=== PATIENT | female | born 1960 | race Caucasian/White ===

== ENCOUNTER 2019-10-07 18:00 | Emergency (ER) | payer OTHER ==
[~2019-10-07] VITALS: Ht 162.5 cm; Wt 43.1 kg
[2019-10-07 18:06] VITALS: BP 79/39
[2019-10-07 19:01] LABS: BASO # 0.1 10*3/uL (0.0-0.1); BASO % 1.2 % (0.0-1.0); EOS # 0.5 10*3/uL (0.0-0.4); EOS % 5.2 % (1.0-4.0); HEMATOCRIT 35.2 % (37.0-47.0); LYMPH # 1.7 10*3/uL (1.3-4.4); LYMPH % 16.4 % (27.0-41.0); MEAN CELL VOLUME 93.1 fl (81.0-99.0); MEAN CORPUSCULAR HGB 28.8 pg (27.0-31.0); MEAN PLATELET VOLUME 9.4 fl (9.6-12.3); MONO # 1.1 10*3/uL (0.1-1.0); MONO % 10.5 % (3.0-9.0); NEUT # 6.7 10*3/uL (2.3-7.9); NEUT % 66.2 % (47.0-73.0); PLATELET COUNT AUTOMATED 226 10*3/uL (130-400); RED BLOOD COUNT 3.78 10*6/uL (4.10-5.10); RED CELL DISTRI WIDTH 15.8 % (0-14.5)
--- NOTE | 2019-10-07 19:12 | NUR ---
PT AMBULATORY TO RESTROOM.
[2019-10-07 19:17] LABS: ALBUMIN 3.2 gm/dl (3.1-4.5); ALKALINE PHOSPHATASE 166 U/L (45-117); BUN 5 mg/dl (7-24); CHLORIDE 109 mmol/L (98-107); CREATININE 0.68 mg/dL (0.55-1.02); POTASSIUM 3.9 mmol/L (3.5-5.1); SGPT/ALT 19 U/L (12-78); SODIUM 138 mmol/L (136-145); TOTAL PROTEIN 7.6 gm/dL (6.4-8.2)
[2019-10-07 19:19] LABS: SGOT/AST 30 IU/L (3-35)
--- NOTE | 2019-10-07 19:30 | NUR ---
PT RESTING IN BED WITH BLANKET. CALL LIGHT WITHIN REACH. NO COMPLAINTS AT THIS TIME
[2019-10-07 19:35] LABS: TROPONIN I < 0.015 ng/ml (<0.045)
[2019-10-07 19:36] LABS: ACETAMINOPHEN (TYLENOL) < 5.0 ug/ml (10-30)
[2019-10-07 19:46] VITALS: BP 118/52
--- NOTE | 2019-10-07 19:55 | NUR ---
PT ASKS IF SHE COULD LEAVE AND COME BACK TOMORROW WITH HER OWN CAR. PT WAS TOLD THAT SHE IS ALREADY ADMITTED.
--- NOTE | 2019-10-07 20:44 | NUR ---
PT SIGNED AND LEFT AMA. CARLOTTA COOPER TRIED TO CONTACT CLIFF FROM [facility] BUT WAS UNABLE TO REACH HER. PT WANTED TO KNOW IF SHE COULD COME BACK TOMORROW TO BE ADMITTED. PT WAS TOLD IT WAS UNSURE IF SHE COULD GET BACK INTO PROGRAM SINCE SHE SIGNED OUT AMA; PT STATES SHE HAD TO SIGN AMA BECAUSE SHE WOULDN'T HAVE HAD A RIDE BACK HOME AFTER DISCHARGE FROM [facility]. STATES HER WAS SUPPOSED TO DRIVE HER BACK BUT HE GOT A CALL SAYING HE HAD TO GO OUT OF TOWN UNTIL SUNDAY OR SUNDAY AND THEREFORE WOULD NOT HAVE A RIDE BACK AFTER COMPLETING PROGRAM. PT WAS ENCOURAGED TO STAY AND GIVEN CONS TO LEAVING BUT SHE DECIDED TO SIGN AMA.
--- NOTE | 2019-10-07 20:48 | NUR ---
The patient, DAE CASIANO, 59, 60, [id number], [id number], presented to the Emergency Department at 1802. The patient's Chief Complaint was NEW VISION REQUEST . The patient subsequently left "Against Medical Advice" at 2047. Treatment completed included EKG, LABS, ADMISSION . Possible complications and consequences of not following medical advice were clearly explained to the patient by Dr. CARLOTTA COOPER , and ASHLIE ELLIS RN. Assessment of the patient's competence, for making the decision to refuse completion of previously requested exam and treatment, includes alert and oriented. Attempts WERE made to get self involved in persuading the patient to accept, SHILA Abdullahi, the physician's recommendations. Discussion included . The patient's response was WANTED TO LEAVE AMA . Family/friends who witnessed the discussion includes . Signatures WERE requested. The patient DID sign the chart; this was witnessed by ASHLIE ELLIS RN. The patient's reason for departing, prior to completion of treatment was OTHER. The patient's disposition is Left Without Complete Rx, to the care of self. Arrangements have been made for the ED staff to "Call Back" the patient the following day, to inquire about the patient's medical status and encourage DAE CASIANO, to seek medical attention, if this has not been completed. ASHLIE ELLIS.
== END 2019-10-07 20:50 | disposition left against medical advice (07) ==
LOC: ED 18:00 → EDHOLD 19:50 → ED 19:50 → EDHOLD 20:31 → 4E 20:31 → ED 20:50
PROVIDERS: Nurse Practitioner
DX: F11.20 Opioid dependence, uncomplicated (principal); F41.9 Anxiety disorder, unspecified; R11.10 Vomiting, unspecified; Z88.2 Allergy status to sulfonamides

== ENCOUNTER 2020-01-03 07:03 | Inpatient (IN) | payer OTHER ==
[~2020-01-03] VITALS: Ht 160 cm; Wt 48.0 kg
[2020-01-03 07:14] VITALS: BP 135/98
[2020-01-03 08:18] LABS: HEMATOCRIT 36.9 % (37.0-47.0); MEAN CELL VOLUME 86.8 fl (81.0-99.0); MEAN CORPUSCULAR HGB 25.4 pg (27.0-31.0); MEAN CORPUSCULAR HGB CONC 29.3 g/dl (33.0-37.0); MEAN PLATELET VOLUME 10.1 fl (9.6-12.3); PLATELET COUNT AUTOMATED 342 10*3/uL (130-400); RED BLOOD COUNT 4.25 10*6/uL (4.10-5.10); RED CELL DISTRI WIDTH 18.6 % (0-14.5); WHITE BLOOD COUNT 13.3 10*3/uL (4.8-10.8)
[2020-01-03 08:31] LABS: ACT PARTIAL THROMBO TIME 29.7 SECONDS (20.0-32.1); INTERNATIONAL NORM RATIO 1.1 (2.0-3.5)
[2020-01-03 08:38] LABS: BASOPHILS 1 % (0-1); PLATELET SUFFICIENCY NORMAL (NORMAL); POLYCHROMASIA SLIGHT; TOTAL CELLS COUNTED 100 #CELLS
[2020-01-03 08:40] LABS: ALBUMIN 3.6 gm/dl (3.1-4.5); ALKALINE PHOSPHATASE 169 U/L (45-117); BUN 7 mg/dl (7-24); CHLORIDE 104 mmol/L (98-107); CREATININE 0.82 mg/dL (0.55-1.02); POTASSIUM 3.2 mmol/L (3.5-5.1); SGOT/AST 27 IU/L (3-35); SGPT/ALT 15 U/L (12-78); SODIUM 140 mmol/L (136-145); TOTAL PROTEIN 8.3 gm/dL (6.4-8.2)
[2020-01-03 08:47] LABS: BILIRUBIN Negative (Negative); BLOOD Negative (Negative); CLARITY Clear (Clear); COLOR Yellow (Yellow); GLUCOSE Negative (Negative); KETONE Negative (Negative); LEUKO ESTERASE Trace (Negative); NITRITE Negative (Negative); UROBILINOGEN 0.2 E.U./dl (0.0-1.0)
[2020-01-03 08:59] LABS: URINE AMPHETAMINES < 1000 (1000ng/ml); URINE BARBITURATES < 200 (200ng/ml); URINE BENZODIAZEPINES < 200 (200ng/ml); URINE CANNABINOIDS (THC) < 50 (50ng/ml); URINE METHADONE < 300 (300ng/ml); URINE OPIATES > 300 (300ng/ml)
[2020-01-03 09:00] LABS: URINE COCAINE < 300 (300ng/ml)
[2020-01-03 09:02] LABS: BACTERIA 2+; CALCIUM OXALATE CRYSTALS 1+
[2020-01-03 09:04] LABS: URINE PHENCYCLIDINE < 25 (25ng/ml)
[2020-01-03 09:05] VITALS: BP 130/92
--- NOTE | 2020-01-03 10:45 | NUR ---
A 59, admitted to 5E, under the services of HILL Granados DO with a diagnosis of CELLULITIS, DESIRE FOR DETOX. Chief complaint is SHAKINESS. Patient arrived via ambulatory from ER. Monitor applied. Initial assessment completed. Vital signs taken and recorded. HILL GRANADOS DO notified of admission to the unit. Orders received. See assessment for past medical history, medications and allergies. Patient and/or family oriented to unit. [facility] visitation policy reviewed. Clothing/patient valuable form completed. KAMI HURD
[2020-01-03] MEDS ORDERED: LEVOTHYROXINE50 MCG PO (11:04)
[2020-01-03] MEDS ORDERED: PROTONIX40 MG PO (11:05)
[2020-01-03] MEDS ORDERED: HYDROXYZINE HCL25 MG PO (11:07)
[2020-01-03] MEDS ORDERED: ONDANSETRON HYDR4 M1 PO (11:08)
--- NOTE | 2020-01-03 11:39 | NUR ---
PT IS REFUSING TO WEAR HEART MONITOR. DR. ACHARYA NOTIFIED.
[2020-01-03 12:00] VITALS: BP 137/52
[2020-01-03 16:00] VITALS: BP 149/69
[2020-01-03 20:00] VITALS: BP 146/62
--- NOTE | 2020-01-03 22:15 | NUR ---
PATIENT C/O MUSCLE ACHES ALL OVER. ROBAXIN, MOTRIN GIVEN PER ORDER FOR ACHES. PATIENT ALSO C/O FEELING ANXIOUS VISTARIL GIVEN PER ORDER. PT. WANTED SOMETHING TO HELP HER SLEEP. TRAZADONE GIVEN PER ORDER FOR INSOMNIA.
--- NOTE | 2020-01-03 22:25 | NUR ---
C/O STOMACH CRAMPS, BENTYL GIVEN PER ORDER. SEE MAR.
--- NOTE | 2020-01-03 22:26 | NUR ---
NICOTROL INHALER FOR NICOTINE CRAVING GIVEN PER ORDER.
--- NOTE | 2020-01-03 23:15 | NUR ---
PATIENT RELAXED FALLING TO SLEEP NO C/O VOICED. ROBAXIN,MOTRIN,VISTARIL AND TRAZADONE BETYL ALL EFFECTIVE.
[2020-01-04] VITALS: BP 150/82
[2020-01-04 06:17] LABS: BASO # 0.1 10*3/uL (0.0-0.1); BASO % 1.1 % (0.0-1.0); EOS # 0.6 10*3/uL (0.0-0.4); EOS % 7.5 % (1.0-4.0); HEMATOCRIT 31.6 % (37.0-47.0); LYMPH # 1.4 10*3/uL (1.3-4.4); LYMPH % 18.6 % (27.0-41.0); MEAN CELL VOLUME 88.8 fl (81.0-99.0); MEAN CORPUSCULAR HGB 25.8 pg (27.0-31.0); MEAN CORPUSCULAR HGB CONC 29.1 g/dl (33.0-37.0); MEAN PLATELET VOLUME 10.1 fl (9.6-12.3); MONO # 0.9 10*3/uL (0.1-1.0); MONO % 11.3 % (3.0-9.0); NEUT # 4.6 10*3/uL (2.3-7.9); NEUT % 61.2 % (47.0-73.0); RED BLOOD COUNT 3.56 10*6/uL (4.10-5.10); RED CELL DISTRI WIDTH 18.4 % (0-14.5); WHITE BLOOD COUNT 7.5 10*3/uL (4.8-10.8)
[2020-01-04 06:19] LABS: PLATELET COUNT AUTOMATED 211 10*3/uL (130-400)
[2020-01-04 06:30] LABS: BUN 5 mg/dl (7-24); CHLORIDE 117 mmol/L (98-107); CREATININE 0.65 mg/dL (0.55-1.02); POTASSIUM 3.8 mmol/L (3.5-5.1); SODIUM 146 mmol/L (136-145)
[2020-01-04 08:21] LABS: VITAMIN D, 25-HYDROXY 32.6 ng/mL (30-100)
[2020-01-04 12:00] VITALS: BP 144/72
[2020-01-04 16:00] VITALS: BP 150/54
[2020-01-04 20:00] VITALS: BP 154/61
[2020-01-05] VITALS: BP 150/81
--- NOTE | 2020-01-05 02:10 | NUR ---
PATIENT RESTING ON LT SIDE. EASY, SNORING RESPIRATIONS ON ROOM AIR. CALL LIGHT IN REACH
[2020-01-05 08:00] VITALS: BP 164/53
--- NOTE | 2020-01-05 10:02 | NUR ---
PT STATES SHE FEELS ANXIOUS, PRN VISTARIL ADMINISTERED AT THIS TIME.
--- NOTE | 2020-01-05 10:06 | NUR ---
PT STATES HER STOMACH IS CRAMPING AND SHE IS NAUSEOUS. PRN BENTYL AND ZOFRAN ADMINISTERED AT THIS TIME. WILL MONITOR FOR EFFECTIVENESS.
--- NOTE | 2020-01-05 10:45 | NUR ---
ATTEMPTED TO WAKE PT SEVERAL TIMES TO DISCUSS DISCHARGE PLANS, PT WAKES UP BUT GOES RIGHT BACK TO SLEEP AND DOES NOT ANSWER QUESTIONS. WILL REVISIT.
--- NOTE | 2020-01-05 11:00 | NUR ---
PT IS ASLEEP. PREVIOUS PRN MEDS CONSIDERED EFFECTIVE.
--- NOTE | 2020-01-05 12:47 | NUR ---
[facility] STAFF IN TO SEE PATIENT. SPOKE TO PATIENT ABOUT NEW VISION SERVICES. PATIENT REPORT THAT SHE DOES NOT WANT THE SUBUTEX TAPER. PATIENT IS UNSURE IF SHE WANTS NEW VISION SERVICES/OR TO FOLLOW UP WITH AN AFTERCARE PLAN. PATIENT ASKED IF [facility] STAFF COULD COME BACK LATER. [facility] STAFF WILL PROVIDE PATIENT WITH A LIST OF REFERRAL OPTIONS AND A LIST OF AA/NA MEETINGS IN HER LOCAL AREA. CLIFF DENNEY B.A. HEATER INSTALLER
[2020-01-05 16:00] VITALS: BP 161/60
--- NOTE | 2020-01-05 16:20 | NUR ---
Bomb Loader in to talk to patient. Patient states lives at HOME with . There are 12 steps in the home. Physician: ASHOK Pharmacy: [facility] Home health services: NONE Patient's level of ADLs: INDEPENDENT Patient has working utilities: YES DME: [facility] Follow-up physician's appointment after d/c: WILL BE MADE BY HOSPITALIST NURSE DIRECTOR Does patient want to access PORTAL?: NO Discharge plan PT LIVES AT HOME WITH HER AND STATE SHE IS INDEPENDENT IN HER CARE. STATES SHE USES A [facility] IF SHE NEEDS IT FOR WALKING A LONG WAYS. DENIES SHE WILL HAVE NEEDS ON DISCHARGE. WILL CONTINUE TO FOLLOW. STATES HER WILL TAKE HER HOME.. LISETH RING
--- NOTE | 2020-01-05 19:41 | NUR ---
PO ZOFRAN GIVEN PER PRN ORDER FOR C/O NAUSEA. WILL MONITOR.
[2020-01-05 20:00] VITALS: BP 130/80
--- NOTE | 2020-01-05 20:41 | NUR ---
ZOFRAN EFFECTIVE PER PT
--- NOTE | 2020-01-05 21:22 | NUR ---
PO LIBRUIM GIVEN PER ORDERS. PT DROWSY, WILL NOT OPEN EYES. STATES WHY DOES SHE HAVE TO OPEN HER EYES. QUESTIONING IF THE LIBRIUM IS SUBUTEX. EDUCATED THAT SHE IS NOT GETTING SUBUTEX. PT STATES SHE REC'D IT EARLIER, THIS NURSE NOTIFIED PT THAT SHE DID NOT. PT COOPERATIVE IN OPENING EYES AND TAKING PO MEDICATION WITH A DRINK, VERBALIZES NO FURTHER NEEDS. PT BACK TO SLEEPING, CALL LIGHT IN REACH. WILL CONT TO MONITOR.
[2020-01-06] VITALS: BP 157/58
--- NOTE | 2020-01-06 00:14 | NUR ---
PT REQUESTED AND RECEIVED PO TRAZODONE FOR C/O INSOMNIA AND PO VISTARIL FOR C/O ANXIETY. WILL MONITOR. CALL LIGHT IN REACH. BED ALARM INTACT.
--- NOTE | 2020-01-06 01:14 | NUR ---
VISTARIL EFFECTIVE PER PT
--- NOTE | 2020-01-06 02:04 | NUR ---
TYLENOL GIVEN PER PT C/O HEADACHE .Y
[2020-01-06 08:00] VITALS: BP 112/47
[2020-01-06] MEDS ORDERED: DOXYCYCLINE100 M3 PO (09:35)
[2020-01-06] MEDS ORDERED: NATURE'S BLEND F1 MG PO (09:38)
[2020-01-06] MEDS ORDERED: THERA TABLET400 MCG PO (09:38)
[2020-01-06] MEDS ORDERED: ONDANSETRON HYDR4 M1 PO (09:38)
[2020-01-06] MEDS ORDERED: HYDROXYZINE HCL25 MG PO (09:38)
[2020-01-06] MEDS ORDERED: LEVOTHYROXINE50 MCG PO (09:38)
[2020-01-06] MEDS ORDERED: PROTONIX40 MG PO (09:38)
--- NOTE | 2020-01-06 11:30 | NUR ---
CALLED PER PT REQUEST RE: DISCHARGE. LEFT MESSAGE FOR CALL BACK.
[2020-01-06 12:00] VITALS: BP 157/53
--- NOTE | 2020-01-06 16:11 | NUR ---
PT REFUSED WOUND CARE DISCHARGE PHOTO.
--- NOTE | 2020-01-06 17:54 | NUR ---
Discharge instructions reviewed with patient/family. Patient receptive and verbalizes understanding. Follow-up care arranged. Written instructions given to patient/family. ASHLIE LU
== END 2020-01-06 17:54 | disposition home or self-care (01) | DRG 872 ==
LOC: ED 07:03 → EDHOLD 09:03 → 5E 09:03
PROVIDERS: Emergency Medicine; Student in an Organized Health Care Education/Training Program; ADMIT Student in an Organized Health Care Education/Training Program; ATTEND Student in an Organized Health Care Education/Training Program
DX: A41.9 Sepsis, unspecified organism (principal); L03.116 Cellulitis of left lower limb; F10.139 Alcohol abuse with withdrawal, unspecified; F11.93 Opioid use, unspecified with withdrawal; K21.9 Gastro-esophageal reflux disease without esophagitis; E03.9 Hypothyroidism, unspecified; R65.20 Severe sepsis without septic shock; F41.9 Anxiety disorder, unspecified; D64.9 Anemia, unspecified; D72.810 Lymphocytopenia; E87.6 Hypokalemia; G25.81 Restless legs syndrome; F17.210 Nicotine dependence, cigarettes, uncomplicated; I73.00 Raynaud's syndrome without gangrene; G89.29 Other chronic pain; M54.5 Low back pain; S80.812A Abrasion, left lower leg, initial encounter; X58.XXXA Exposure to other specified factors, initial encounter; Y93.89 Activity, other specified; Y92.89 Other specified places as the place of occurrence of the external cause; Y99.8 Other external cause status; Z88.2 Allergy status to sulfonamides; Z85.3 Personal history of malignant neoplasm of breast; Z82.49 Family history of ischemic heart disease and other diseases of the circulatory system; Z80.1 Family history of malignant neoplasm of trachea, bronchus and lung; Z79.899 Other long term (current) drug therapy